=== PATIENT | male | born 1995 | race African-American/Black ===

== ENCOUNTER 2018-02-13 15:40 | Outpatient (CLI) | payer OTHER ==
--- NOTE | 2018-02-13 18:47 | MRI ---
MRI OF THE RIGHT KNEE WITHOUT CONTRAST: Date: 02/13/18 HISTORY: Hyperextension knee injury 2 weeks ago while playing football. COMPARISON: Right knee radiograph dated 02/06/18. FINDINGS: There is moderate joint capsular distention. There is a mild size medial suprapatellar synovial plica e. There is Grade I MCL and LCL sprain. There is pivot shift contusion pattern of the posterior tibial plateau and lateral femoral condyle. There is complete disruption of the ACL. There is a vertically oriented tear involving the posterior horn and posterior junction of the medial meniscus. The lateral meniscus appears intact. The extensor mechanism is intact. IMPRESSION: 1. Complete ACL disruption. 2. Medial meniscal tear. 3. Pivot shift contusion pattern of the posterior tibial plateau and lateral femoral condyle. 4. Grade I MCL and LCL sprain. 5. Moderate size medial suprapatellar synovial plicae. POS: TPC
== END 2018-02-13 15:41 | disposition home or self-care (01) ==
LOC: MRI 15:40
PROVIDERS: ATTEND Orthopaedic Surgery
DX: M23.91 Unspecified internal derangement of right knee (principal); M67.51 Plica syndrome, right knee; S83.511A Sprain of anterior cruciate ligament of right knee, initial encounter; S83.241A Other tear of medial meniscus, current injury, right knee, initial encounter; S83.411A Sprain of medial collateral ligament of right knee, initial encounter; S83.421A Sprain of lateral collateral ligament of right knee, initial encounter; S80.01XA Contusion of right knee, initial encounter

== ENCOUNTER 2018-03-09 06:25 | Observation (INO) | payer OTHER ==
[2018-03-08 12:00] VITALS: BMI 33.2
[2018-03-09] MEDS ORDERED: Fentanyl 100 MCG/2 ML VIAL ONE ×3 (06:47→09:57)
[2018-03-09] MEDS ORDERED: Midazolam HCl 2 mg/2 ml Vial ONE (06:47)
[2018-03-09] MEDS ORDERED: CEFAZOLIN/Water 2 GM/20 ML SYRINGE ONE (07:02)
[2018-03-09 07:12] LABS: Hemoglobin 15.8 g/dL (14.0-18.0); Mean Corpuscular Hemoglobin 28.6 pg (25.0-35.0); Mean Corpuscular Volume 89.4 fL (78.0-98.0); Mean Platelet Volume 6.7 fL (7.4-10.4); Platelet Count 242 thou/uL (130-400); RBC Distribution Width 11.9 % (11.5-14.5); Red Blood Cell (RBC) Count 5.52 mill/uL (4.00-5.20); White Blood Cell (WBC) Count 6.4 thou/uL (4.8-10.8)
[2018-03-09 07:32] LABS: Anion Gap 10 mmol/L (10-20); BUN (Urea Nitrogen) 20 mg/dL (8.9-20.6); Calc. Creatinine Clearance 141 mL/min (70-130); Calcium 9.5 mg/dL (7.8-10.44); Carbon Dioxide 28 mmol/L (22-29); Chloride 105 mmol/L (98-107); Estimated GFR-MDRD 84; Glucose 87 mg/dL (70-105); Potassium 4.2 mmol/L (3.5-5.1); Sodium 139 mmol/L (136-145)
[2018-03-09] MEDS ORDERED: PHENYLEPHRINE-NS 100 MCG/ML 10 ML SYRINGE ONE ×2 (08:43→13:11)
[2018-03-09] MEDS ORDERED: traMADol HCl 50 MG TAB PO PRN (09:32)
[2018-03-09] MEDS ORDERED: Methocarbamol 500 MG TAB PO PRN (09:32)
[2018-03-09] MEDS ORDERED: Acetaminophen 500 MG TAB PO PRN (09:32)
[2018-03-09] MEDS ORDERED: HYDROcodone/Acetaminophen 7.5/325 mg Tablet PO PRN (09:32)
[2018-03-09] MEDS ORDERED: Bisacodyl 10 MG SUPP PR PRN (09:32)
[2018-03-09] MEDS ORDERED: Ondansetron PF 4 MG/2 ML Vial IVP PRN (09:32)
[2018-03-09] MEDS ORDERED: diphenhydrAMINE 50 MG CAP PO PRN (09:32)
[2018-03-09] MEDS ORDERED: Milk Of Magnesia 30 ML UDCUP PO PRN (09:32)
[2018-03-09] MEDS ORDERED: Meperidine HCl/PF 25 MG/ML VIAL ONE (09:37)
[2018-03-09] MEDS ORDERED: CEFAZOLIN/Water 2 GM/20 ML SYRINGE SLOW IVP SCH (09:45)
--- NOTE | 2018-03-09 11:40 | OP ---
DATE OF PROCEDURE: 03/09/2018 PREOPERATIVE DIAGNOSIS: Right knee anterior cruciate ligament tear. POSTOPERATIVE DIAGNOSIS: Right knee anterior cruciate ligament tear. PROCEDURES PERFORMED: 1. Right leg exam under anesthesia. 2. Right knee arthroscopy with arthroscopically assisted ACL reconstruction using autologous patella r tendon graft. 3. Partial lateral meniscectomy. SURGEON: Sunil Durand M.D. ESTHETICIAN FACIALIST: Pavel Washington PA-C. BLOOD LOSS: Minimal. COMPLICATIONS: None. ANESTHESIA: He had general anesthetic. He also had a preoperative block. DISPOSITION: He went to the recovery room in stable condition. IMPLANTS: Metal 7 x 25 interference screw and a bicortical screw with a smooth washer used on the ti ben as opposed. These were both [employer] devices. INDICATIONS: A 22-year-old male injured his knee playing football. At this time, he is presenting f or ACL reconstruction. DESCRIPTION OF PROCEDURE: After appropriate consent forms were explained and signed, he was taken to the operating room and at this time was given general anesthetic. Once anesthesia was appropriate, a tourniquet was placed on his right thigh and the leg was placed in an arthroscopic leg rodriguez. The limb was then prepped and draped in standard surgical fashion. Limb was exsanguinated and the tourn iquet was taken to 300 mmHg. Midline incision was made with a 10 blade down through skin. Bovie was used to coagulate any brisk venous bleeding. New blade was used to take the paratenon off the under lying patellar tendon. Central third patellar tendon graft was then harvested using a double 10 blad e saw and osteotomes. This was taken to the back table and made so a size 10 and 11. Multiple inter rupted Vicryls were used to close our graft site. An inferolateral portal was established and the sc ope was placed into the knee joint. A needle localization technique was then used to make a medial w orking portal. Diagnostic arthroscopy commenced in the notch. ACL was found to be torn. PCL was in tact. At this time, all soft tissue remnants were removed and we then turned our attention to the me dial compartment. Femur, tibia, and medial meniscus were probed and found to be intact. We turned o ur attention to the lateral compartment. There was a radial tear of the body of the lateral meniscus . Partial lateral meniscectomy was performed using meniscal biter and shaver. Remaining meniscus wa s in good condition. The femur and tibia was in good condition. The gutters were swept through and no loose bodies noted and the patellofemoral joint was also found to be in good condition. At this t tyron, notchplasty was performed using the john and shaver in standard fashion. At this time, we flexe d the knee up into the medial portal using [id number] guide to place a pin up and out the anterolat eral thigh. A 10 mm acorn reamer was then used to ream to a depth of 30. All loose bony cartilagino us debris was now removed from the knee joint. At this time, the tibial guide was placed at 55 degre es into the knee and a pin was placed up into the knee joint. An 11 mm acorn reamer was then used to ream our tunnel. Again, all loose bony cartilaginous debris was removed from the knee joint and a r ed rasp and a john was used to smooth out our tunnels. At this time, we went dry. The pin was place d up and out the anterolateral thigh with a passing suture. This was then pulled down the tibial alona mak and used to pull our graft up into the knee joint. A 7 x 25 metal interference screw was then us ed to fixate our graft in place and we then drilled, tapped and placed our bicortical screw with a sm ooth washer on our tibia. The knee was tightened down in nearly full extension and a posterior drawe r being applied. At this time, we directly visualized the graft and found it to come out into full e xtension with no interference on the notch and at this time, we removed the scope and drained the kne e. We then bone grafted our tibial and patellar graft sites. We then ran #1 Vicryl to close our par atenon followed by 2-0 Vicryl and yasir to close skin. Bulky sterile dressing was applied. The kierra montgomery was then awakened. He was taken to the recovery room in stable condition. All counts were cor rect at the end of the case and he did receive preoperative IV antibiotics.
[2018-03-09] MEDS: Dextrose 5 %-0.45 % NaCl 1,000 ML IV SCH ×2 (12:32→20:40)
[2018-03-09] MEDS ORDERED: Bupivacaine HCl 0.5%/Epinephrine 1:200,000/PF 30 ml Vial ONE (12:59)
[2018-03-09] MEDS ORDERED: PROPOFOL 200 MG/20 ML VIAL ONE (13:11)
[2018-03-09] MEDS ORDERED: Dexamethasone 20 MG/5 ML VIAL ONE (13:11)
[2018-03-09] MEDS ORDERED: Ondansetron PF 4 MG/2 ML Vial ONE (13:11)
[2018-03-09] MEDS: HYDROcodone/Acetaminophen 7.5/325 mg Tablet PO PRN (13:50)
[2018-03-09] MEDS: Ketorolac Tromethamine 30 MG/ML VIAL IVP SCH ×3 (13:50→23:51)
[2018-03-09] MEDS: CEFAZOLIN 2 GM/50 ML-DEXTROSE 50 ML IVPB SCH ×2 (17:02→23:52)
[2018-03-09] MEDS: Famotidine 20 MG TAB PO SCH (20:38)
[2018-03-10] MEDS: HYDROcodone/Acetaminophen 7.5/325 mg Tablet PO PRN ×2 (01:44→06:38)
[2018-03-10 03:52] VITALS: TEMP 98.4
[2018-03-10] MEDS: Dextrose 5 %-0.45 % NaCl 1,000 ML IV SCH (06:24)
[2018-03-10] MEDS: Ketorolac Tromethamine 30 MG/ML VIAL IVP SCH (06:27)
[2018-03-10 08:11] VITALS: BP 117/82
[2018-03-10] MEDS: Famotidine 20 MG TAB PO SCH (10:21)
== END 2018-03-10 10:39 | disposition home or self-care (01) ==
LOC: SDC 06:25 → SJJU 12:04
PROVIDERS: ADMIT Orthopaedic Surgery; ATTEND Orthopaedic Surgery
PROC: 0MQN4ZZ Repair Right Knee Bursa and Ligament, Percutaneous Endoscopic Approach (ICD-10-PCS; principal; 2018-03-09)
PROC: 0SBC4ZZ Excision of Right Knee Joint, Percutaneous Endoscopic Approach (ICD-10-PCS; 2018-03-09)
DX: S83.511A Sprain of anterior cruciate ligament of right knee, initial encounter (principal)
CPT/HCPCS: 80048; 85027; 90471; 90686; 96374; 96375; 96376; C1713; G0008; G0378; G8978-GP-CI; G8979-GP-CI; G8980-GP-CI; J0670; J1100; J1885; J2175; J2250; J2405; J2704; J3010